=== PATIENT | male | born 1985 | race Caucasian/White ===

== ENCOUNTER 2025-06-29 14:06 | Inpatient (IN) | payer OTHER ==
[~2025-06-29] VITALS: Ht 170.2 cm; Wt 103.0 kg
[2025-06-29 15:19] LABS: PLATELET COUNT (AUTO) 264 K/uL (150-450); RED BLOOD CELL COUNT(AUTO) 5.16 MIL/uL (4.50-5.90); RED CELL DISTRIBUTION WIDTH 12.7 % (11.5-14.5); WHITE BLOOD COUNT (AUTO) 12.4 K/uL (4.5-11.0)
[2025-06-29 15:27] LABS: CALCIUM, TOTAL 8.9 mg/dL (8.8-10.5); CREATININE 1.64 mg/dL (0.60-1.30); GLOMERULAR FILTR. RATE CALC 47 mL/min (>60); GLUCOSE,RANDOM 302 mg/dL (70-110); SODIUM SERUM 133 mmol/L (136-145); UREA NITROGEN, BLOOD 27 mg/dL (7-18)
[2025-06-29 15:36] LABS: TROPONIN I-HIGH SENSITIVITY 13 ng/L (<76)
[2025-06-29 16:00] LABS: ASPARTATE AMINOTRANSFERASE 19.0 U/L (15-37); CREATINE KINASE, TOTAL ONLY 95.0 U/L (39-308); TOTAL PROTEIN, SERUM 7.5 g/dL (6.4-8.2)
[2025-06-29] MEDS: INSULIN GLARGINE,HUM.REC.ANLOG 100 UNITS/ML SQ SCH (16:00)
[2025-06-29] MEDS ORDERED: DEXTROSE 50%-WATER 25 GM/50 ML SYRINGE IVP PRN (16:00)
[2025-06-29] MEDS: HEPARIN SODIUM,PORCINE 5,000 UNITS/ML VIAL SQ SCH (16:00)
[2025-06-29] MEDS: INSULIN REGULAR, HUMAN 100 UNITS/ML IVP ONE (16:11)
[2025-06-29] MEDS: SODIUM CHLORIDE 0.9% 2,000 ML IV ONE (16:12)
[2025-06-29] MEDS: LOSARTAN POTASSIUM 50 MG TABLET PO ONE (16:15)
[2025-06-29] MEDS: ONDANSETRON 4 MG TABLET PO ONE (16:15)
[2025-06-29] MEDS: MECLIZINE HCL 25 MG TABLET PO ONE (16:15)
[2025-06-29] MEDS: MetFORMIN HCL 500 MG ER TABLET PO ONE (17:20)
[2025-06-29] MEDS: DOCUSATE SODIUM 100 MG CAPSULE PO SCH (20:17)
[2025-06-29 21:48] VITALS: BP 103/79; PULSE 85; RESP 18; TEMP 97.9; O2SAT 97
[2025-06-29] MEDS: INSULIN LISPRO 100 UNITS/ML SQ PRN (22:28)
[2025-06-30] VITALS (10 sets, daily range): BP systolic 118–158; BP diastolic 68–97; PULSE 76–84; RESP 18–20; TEMP 98–98.6; O2SAT 96–98
[2025-06-30 05:12] LABS: GLUCOMETER DEV NAME(LOC) 5S.2D; GLUCOSE,POINT OF CARE 184 MG/DL (70-110)
[2025-06-30 06:34] LABS: PLATELET COUNT (AUTO) 236 K/uL (150-450); RED BLOOD CELL COUNT(AUTO) 4.50 MIL/uL (4.50-5.90); RED CELL DISTRIBUTION WIDTH 12.9 % (11.5-14.5); WHITE BLOOD COUNT (AUTO) 10.9 K/uL (4.5-11.0)
[2025-06-30 06:37] LABS: CALCIUM, TOTAL 8.2 mg/dL (8.8-10.5); CREATININE 1.45 mg/dL (0.60-1.30); GLOMERULAR FILTR. RATE CALC 54.0 mL/min (>60); GLUCOSE,RANDOM 179.0 mg/dL (70-110); SODIUM SERUM 138.0 mmol/L (136-145); UREA NITROGEN, BLOOD 22.0 mg/dL (7-18)
[2025-06-30 08:14] LABS: APPEARANCE,URINE CLEAR (CLEAR); GLUCOSE, URINE (UA) 70-100 mg/dL (NEGATIVE); LEUKOCYTE ESTERASE ,URINE NEGATIVE (NEGATIVE); NITRATE,URINE NEGATIVE (NEGATIVE); OCCULT BLOOD,URINE NEGATIVE (NEGATIVE); SPECIFIC GRAVITIY, URINE 1.022 (1.003-1.030)
[2025-06-30 08:15] LABS: CREATININE,URINE RANDOM 145.1 mg/dL (30.0-125.0)
[2025-06-30 08:22] LABS: ALCOHOL, URINE DRUG SCREEN NEGATIVE (NEGATIVE); AMPHET/METH SCREEN,URINE NEGATIVE (NEGATIVE); BARBITURATE SCREEN, URINE NEGATIVE (NEGATIVE); CANNABINOID SCREEN,URINE POSITIVE (NEGATIVE); COCAINE SCREEN,URINE NEGATIVE (NEGATIVE); METHADONE SCREEN, URINE NEGATIVE (NEGATIVE); PH,URINE DRUG SCREEN 5.5 (5.0-8.0)
[2025-06-30 08:46] LABS: SULFOSALICYLIC ACID,URINE 2+ (Negative)
[2025-06-30 08:48] LABS: SQUAMOUS EPITHELIAL CELL,UR Rare /LPF (None Seen)
[2025-06-30] MEDS: RINGERS SOLUTION,LACTATED 1,000 ML IV SCH (12:32)
[2025-06-30] MEDS: ACETAMINOPHEN 325 MG TABLET PO PRN (18:17)
[2025-06-30 20:41] LABS: GLUCOMETER DEV NAME(LOC) 5S.1D; GLUCOSE,POINT OF CARE 157 MG/DL (70-110)
[2025-06-30 20:41] LABS: GLUCOMETER DEV NAME(LOC) 5S.1D; GLUCOSE,POINT OF CARE 205 MG/DL (70-110)
[2025-06-30 20:41] LABS: GLUCOMETER DEV NAME(LOC) 5S.1D; GLUCOSE,POINT OF CARE 174 MG/DL (70-110)
[2025-06-30 20:50] LABS: GLUCOMETER DEV NAME(LOC) 5S.2D; GLUCOSE,POINT OF CARE 151 MG/DL (70-110)
[2025-06-30] MEDS: MECLIZINE HCL 25 MG TABLET PO SCH (22:36)
[2025-07-01] VITALS: RESP 18
[2025-07-01 04:00] VITALS: BP 143/81; PULSE 72; RESP 18; TEMP 98; O2SAT 96
[2025-07-01] MEDS: ONDANSETRON HCL 4 MG/2 ML VIAL IVP PRN (05:30)
[2025-07-01 05:51] LABS: GLUCOMETER DEV NAME(LOC) 6S.2; GLUCOSE,POINT OF CARE 133 MG/DL (70-110)
[2025-07-01 08:12] VITALS: BP 140/98; PULSE 76; RESP 16; TEMP 97.9; O2SAT 100
[2025-07-01 11:51] LABS: GLUCOMETER DEV NAME(LOC) 6S.2; GLUCOSE,POINT OF CARE 150 MG/DL (70-110)
[2025-07-01 14:02] LABS: CALCIUM, TOTAL 8.5 mg/dL (8.8-10.5); CREATININE 1.21 mg/dL (0.60-1.30); GLOMERULAR FILTR. RATE CALC > 60 mL/min (>60); GLUCOSE,RANDOM 121 mg/dL (70-110); SODIUM SERUM 138 mmol/L (136-145); UREA NITROGEN, BLOOD 12 mg/dL (7-18)
[2025-07-01] MEDS ORDERED: MECL-302 PO (15:46)
[2025-07-01] MEDS ORDERED: METF-1211 PO (15:47)
[2025-07-01] MEDS ORDERED: LOSA-381 PO (15:48)
[2025-07-01 16:00] VITALS: BP 148/90; PULSE 74; RESP 18; TEMP 98.2; O2SAT 97
[2025-07-01 20:02] VITALS: BP 154/88; PULSE 75; RESP 18; TEMP 97.9; O2SAT 99
[2025-07-02 04:00] VITALS: BP 168/96; PULSE 74; RESP 16; TEMP 97.3; O2SAT 97
[2025-07-02 12:00] LABS: GLUCOMETER DEV NAME(LOC) 4E.2; GLUCOSE,POINT OF CARE 120 MG/DL (70-110)
[2025-07-02 12:05] LABS: GLUCOMETER DEV NAME(LOC) 6S.2; GLUCOSE,POINT OF CARE 187 MG/DL (70-110)
[2025-07-02 12:05] LABS: GLUCOMETER DEV NAME(LOC) 6S.2; GLUCOSE,POINT OF CARE 110 MG/DL (70-110)
== END 2025-07-02 08:00 | DRG 682 ==
LOC: EMS 14:06 → EDH 15:48 → 5S 21:38 → 6S 07-01 01:32
PROVIDERS: ADMIT Internal Medicine; ATTEND Internal Medicine
DX: N17.0 Acute kidney failure with tubular necrosis (principal); R65.11 Systemic inflammatory response syndrome (SIRS) of non-infectious origin with acute organ dysfunction; I16.1 Hypertensive emergency; E11.65 Type 2 diabetes mellitus with hyperglycemia; E66.9 Obesity, unspecified; N14.11 Contrast-induced nephropathy; I10 Essential (primary) hypertension; E11.21 Type 2 diabetes mellitus with diabetic nephropathy; Z68.35 Body mass index [BMI] 35.0-35.9, adult; Z86.73 Personal history of transient ischemic attack (TIA), and cerebral infarction without residual deficits
CPT/HCPCS: 71250; 72192; 74150; 80048; 80076; 80307; 81001; 81002; 82550; 82570; 82962; 83735; 83880; 84300; 84484; 85025; 85379; 87081; 87086; 93005; 99285; J1644; J1815; J2405; J7030; J7120; Q0162